=== PATIENT | female | born 1965 | race Caucasian/White ===

== ENCOUNTER → 2016-10-30 | Outpatient (CLI) | payer BC, OTHER ==
[~2016-10-30] MED LIST: IOHEXOL 350 MG/ML 100ML IJ ONE
[2016-10-30 09:35] VITALS: BP 110/83
[2016-10-30 10:15] VITALS: BP 109/75
== END | disposition home or self-care (01) ==
LOC: Rad HDHVI 09:24
PROVIDERS: ATTEND Internal Medicine Cardiovascular Disease
DX: I26.99 Other pulmonary embolism without acute cor pulmonale (principal); R07.9 Chest pain, unspecified; R00.0 Tachycardia, unspecified; R06.89 Other abnormalities of breathing; Z90.710 Acquired absence of both cervix and uterus
CPT/HCPCS: G0463; Q9967